=== PATIENT | male | born 1980 | race Caucasian/White ===

== ENCOUNTER 2023-06-22 17:31 | Emergency (ER) | payer BC, OTHER ==
[~2023-06-22 17:31] MED LIST: Iopamidol 370 76% 100 ML VIAL ONE
[2023-06-22 19:28] LABS: INR-International Normal Ratio 0.8; PTT 26.2 sec (22.0-33.0)
[2023-06-22 19:32] LABS: ALT (SGPT) 18 U/L (8-55); AST (SGOT) 7 U/L (5-34); Albumin 4.1 g/dL (3.5-5.0); Alkaline Phosphatase 73 U/L (40-110); Anion Gap 21 mmol/L (10-20); BUN (Urea Nitrogen) 13 mg/dL (8.9-20.6); Bilirubin, Total 0.3 mg/dL (0.2-1.2); Calc. Creatinine Clearance 0 mL/min (70-130); Calcium 8.9 mg/dL (7.8-10.44); Carbon Dioxide 21 mmol/L (22-29); Chloride 92 mmol/L (98-107); Estimated GFR 107; Globulin 3.8 g/dL (2.4-3.5); Lipase 54 U/L (8-78); Magnesium 1.8 mg/dL (1.6-2.6); Potassium 4.2 mmol/L (3.5-5.1); Protein, Total 7.9 g/dL (6.0-8.3); Sodium 130 mmol/L (136-145)
[2023-06-22 19:34] LABS: Glucose 482 mg/dL (70-105)
[2023-06-22 19:38] LABS: Troponin I Less than 0.010 ng/mL (< 0.028)
[2023-06-22 19:43] LABS: Prothrombin Time 8.8 sec (9.5-12.1)
[2023-06-22 20:03] LABS: Hematocrit 30.7 % (38.8-50.0); Hemoglobin 12.3 g/dL (13.5-17.5); Mean Corpuscular HGB CONC 40.1 g/dL (32.0-36.0); Mean Corpuscular Hemoglobin 34.6 pg (27.0-33.0); Mean Corpuscular Volume 86.5 fl (81.2-95.1); Mean Platelet Volume 12.2 fl (7.4-10.4); Platelet Count 211 10x3/uL (150-450); RBC Distribution Width 12.5 % (11.5-14.5); Red Blood Cell (RBC) Count 3.55 10x6/uL (4.32-5.72); White Blood Cell (WBC) Count 8.2 10x3/uL (3.5-10.5)
[2023-06-22 20:09] LABS: #Basophils 0.1 10x3/uL (0.0-0.2); #Eosinphils 0.2 10x3/uL (0.0-0.5); #Monocytes 0.7 10x3/uL (0.0-1.1); #Neutrophils 4.9 10x3/uL (1.5-8.4); %Basophils 0.7 % (0.0-2.0); %Eosinophils 1.8 % (0.0-6.0); %Lymphocytes 29.4 % (18.0-47.0); %Monocytes 8.5 % (0.0-10.0); %Neutrophils 57.6 % (40.0-75.0)
[2023-06-22 20:30] LABS: Bilirubin Neg (Negative); Blood, Urine Negative (Negative); Clarity Clear (Clear); Glucose, Urine (Dipstick) >=1000 mg/dL (Negative); Ketone, Urine 150 mg/dL (Negative); Leukocyte Negative (Negative); Nitrite Negative (Negative); Protein, Urine (Dipstick) 30 mg/dl (Neg-Trace); Urobilinogen Normal mg/dL (Less than 2)
[2023-06-22 21:05] LABS: Bacteria/HPF None Seen HPF (None Seen); CAUTI Indications for Culture Pelvic or flank pain; RBC/HPF 0-3 HPF (0-3); Squamous Epithelial 0-3 HPF (0-3); WBC/HPF 0-3 HPF (0-3)
[2023-06-22 21:06] LABS: Urine Culture Reflex No No
== END 2023-06-22 21:31 | disposition home or self-care (01) ==
LOC: CSHERS 17:31
DX: R07.89 Other chest pain (principal); E87.1 Hypo-osmolality and hyponatremia; E11.9 Type 2 diabetes mellitus without complications; Z79.84 Long term (current) use of oral hypoglycemic drugs
CPT/HCPCS: 36415; 71045; 71275; 80053; 81001; 82570; 83605; 83690; 83735; 83880; 83930; 83935; 84300; 84443; 84478; 84484; 84560; 85025; 85610; 85730; 93005; Q9967